=== PATIENT | male | born 1980 | race Caucasian/White ===

== ENCOUNTER 2022-03-01 12:15 | Emergency (ER) | payer BC, SELFPAY ==
--- NOTE | ~2022-03-01 | XR_ITS ---
EXAMINATION: XR chest 2V 03/01/2022 13:13 INDICATION: Chest pain and hypertension. PROCEDURE: 2 view chest COMPARISON: No prior studies for comparison. FINDINGS: The lungs are clear. The cardiomediastinal silhouette is within normal limits. There are no pleural effusions. There is no pneumothorax suspected. IMPRESSION: 1: NO ACUTE CARDIOPULMONARY DISEASE. Reviewed, dictated and finalized at location A.
--- NOTE | 2022-03-01 12:23 | ECG_ITS ---
Measurements Intervals [place] Rate: 87 P: 33 MS: 144 QRS: -16 QRSD: 91 T: 68 QT: 356 QTc: 430 Interpretive Statements SINUS RHYTHM WITH SINUS ARRHYTHMIA NONSPECIFIC T-WAVE ABNORMALITY NO PREVIOUS ECG AVAILABLE FOR COMPARISON Electronically Signed On 03-01-2022 18:07:20 CDT by Liliane Naidu M.D.
[2022-03-01 12:37] VITALS: BP 169/115; PULSE 103; RESP 20; TEMP 36.4; O2SAT 97
[2022-03-01 12:47] LABS: Basophils Absolute Auto 0.1 K/mm3 (0.0-0.1); Basophils Percent Auto 0.9 % (0.2-1.2); Eosinophils Absolute Auto 0.3 K/mm3 (0-0.3); Eosinophils Percent Auto 3.2 % (0-4.4); Hematocrit 46.7 % (42.0-52.0); Hemoglobin 15.7 g/dL (14.0-18.0); Immature Granulocyte Absolute 0.16 K/mm3 (0.00-0.031); Immature Granulocyte Percent A 1.8 % (0-0.5); Lymphocytes Absolute Auto 1.27 K/mm3 (0.9-3.2); Lymphocytes Percent Auto 14.6 % (18.3-44.2); Mean Corpuscular HGB Conc 33.6 g/dl (32-36); Mean Corpuscular Hemoglobin 31.1 pg (26-34); Mean Corpuscular Volume 92.5 fl (80-100); Mean Platelet Volume 8.9 fl (7.4-10.4); Monocytes Absolute Auto 0.6 K/mm3 (0.1-0.6); Monocytes Percent Auto 6.8 % (2.6-8.5); Neutrophils Absolute Auto 6.3 K/mm3 (1.3-6.7); Neutrophils Percent Auto 72.7 % (45.5-73.1); Platelet Count Result 242 k/mm3 (150-375); Red Blood Count 5.05 M/mm3 (4.6-6.20); Red Cell Distribution Width 12.4 % (11.5-14.5); White Blood Count 8.7 K/mm3 (4.5-10.0)
[2022-03-01 12:57] LABS: Alanine Aminotransferase 25 U/L (6-50); Albumin Level 4.6 g/dL (3.5-5.1); Alkaline Phosphatase 90 U/L (38-126); Anion Gap 7 mmol/L (8-16); Aspartate Amino Transferase 62 U/L (17-59); Bilirubin,Total 0.8 mg/dL (0.2-1.3); Blood Urea Nitrogen 19 mg/dL (9-20); Calcium 8.9 mg/dL (8.4-10.2); Carbon Dioxide 28 mmol/L (22-30); Chloride 102 mmol/L (98-107); Estimated CRCL calculation 87 ml/min; Estimated Glomerular Filt Rate > 60; Glucose 95 mg/dL (65-110); Lipase 71 U/L (23-300); Potassium 4.3 mmol/L (3.4-5.0); Sodium 137 mmol/L (137-145)
[2022-03-01 12:58] LABS: INR 0.9; Prothrombin Time 12.2 Seconds (11.1-14.7)
[2022-03-01 12:59] LABS: Partial Thromboplastin Time 27.7 SECONDS (22.3-36.8)
[2022-03-01 13:08] LABS: Troponin I < 0.012 ng/mL (0.000-0.034)
--- NOTE | 2022-03-01 14:03 | ED.GENADULT ---
HPI - General Adult General Chief complaint: Recheck/Abnormal Lab/Rx Stated complaint: HTN Time Seen by Provider: 03/01/22 13:19 Source: patient Mode of arrival: ambulatory History of Present Illness HPI narrative: This is a 42-year-old male with reported past medical history of hypertension, who presents to the emergency department complaining of general malaise, associated with blurred vision and elevated blood pressure by home monitoring. Patient states yesterday, he noted an unusual feeling, associated with blurred vision, without headache, loss of vision, weakness or chest pain/loss of consciousness. Patient states he checked his blood pressure, noted it was in the 200s over approximately 150s, which is why he presents today. He states he was previously taking metoprolol but stopped about 4 weeks ago due to paresthesias. He states he is currently not followed by a primary care doctor. Review of Systems Review of Systems: CONSTITUTIONAL: Denies fever, chills, or sweats. EYES: Blurred vision, Denies visual changes, redness, or discharge. ENT: Denies rhinorrhea, congestion, sore throat, or otalgia. CARDIOVASCULAR: Denies chest pain, palpitations, or edema. RESPIRATORY: Denies cough or dyspnea. GASTROINTESTINAL: Denies abdominal pain, nausea, vomiting, or diarrhea. GENITOURINARY: Denies dysuria or hematuria. SKIN: Denies rash or itching. MUSCULOSKELETAL: Denies back pain, joint pain, or myalgia. NEUROLOGIC: Denies headache, numbness, dizziness, or weakness. PSYCHIATRIC: Denies anxiety or depression. [facility] Tobacco Smoking and tobacco status: Former smoker Alcohol Alcohol intake: current Alcohol intake frequency: a few times a week (10 at a time) Alcohol type: other Previous attempts at quittin Counseling given: Yes Counseling provided: provider counseling Substance Use Substance use type: does not use Exam Narrative: GENERAL: Well-appearing, well-nourished, and in no acute distress. HEAD: Normocephalic, atraumatic. EYES: PERRLA and EOMI, funduscopic exam normal. ENT: Nares clear, no rhinorrhea or epistaxis. Mucous membranes moist. Oropharynx without tonsillar hypertrophy exudate or other lesions. NECK: Supple. No adenopathy or masses. No carotid bruits or JVD CHEST: Clear to auscultation. No respiratory distress. No wheezes rales or rhonchi HEART: Regular rate and rhythm. No murmur heard. Normal peripheral pulses. ABDOMEN: Obese, soft, nontender, nondistended, normal active bowel sounds. EXTREMITIES: Normal range of motion. No edema. SKIN: Warm, dry, no rash. NEURO: No focal deficits. Alert and oriented x3. Course Vital Signs Vital signs: Vital Signs Temperature 97.6 F 03/01/22 12:37 Pulse Rate 103 H 03/01/22 12:37 Respiratory Rate 20 03/01/22 12:37 Blood Pressure 169/115 H 03/01/22 12:37 Pulse Oximetry 97 03/01/22 12:37 Oxygen Delivery Room Air 03/01/22 12:37 Temperature 97.6 F 03/01/22 12:37 Pulse Rate 96 03/01/22 15:09 Respiratory Rate 19 03/01/22 15:09 Blood Pressure 170/116 H 03/01/22 15:09 Pulse Oximetry 96 03/01/22 15:09 Oxygen Delivery Room Air 03/01/22 12:37 Medical Decision Making [facility] Narrative Medical decision making narrative: Clinical diagnosis: Hypertension Exam unremarkable. Labs grossly within normal limits, including troponin. ECG not concerning for ischemia or arrhythmia. During evaluation, the patient revealed he drinks 3-4 times a week, 10 drinks at a time, with his last drink 2 days ago. He denied history of significant alcohol withdrawal or seizures. I do not suspect alcohol withdrawal at this time. Blood pressure is improved during observation without medical intervention. Recommended follow-up with primary care doctor for blood pressure management, as well as follow-up for alcohol abuse. Discussed return emergency precautions, including signs symptoms of cardiac or central nervous ischemia, and syncope. The patient voiced understanding and i
[2022-03-01 15:09] VITALS: BP 170/116; PULSE 96; RESP 19; O2SAT 96
== END 2022-03-01 15:09 | disposition home or self-care (01) ==
PROVIDERS: Emergency Medicine; Emergency Provider Preventive Medicine Aerospace Medicine
DX: I10 Essential (primary) hypertension (principal); F10.10 Alcohol abuse, uncomplicated; Z87.891 Personal history of nicotine dependence; R94.31 Abnormal electrocardiogram [ECG] [EKG]
CPT/HCPCS: 36415; 71046; 80053; 83690; 84484; 85025; 85610; 85730; 93005; 99284

== ENCOUNTER 2022-05-03 10:40 | Outpatient (CLI) | payer BC, SELFPAY ==
--- NOTE | ~2022-05-03 | XR_ITS ---
EXAMINATION: XR chest 2V DATE: 05/03/2022 11:04 INDICATION: COVID 19 TECHNIQUE: PA and lateral views of the chest were obtained. COMPARISON: Chest radiograph dated 03/01/2022 FINDINGS: The lungs are clear with no focal airspace opacities, pulmonary edema, pleural effusion or pneumothor ax. The cardiomediastinal silhouette is normal. Visualized bones and soft tissues are unremarkable. IMPRESSION: 1. No acute cardiopulmonary disease. Reviewed, dictated and finalized at location A.
== END 2022-05-03 10:41 | disposition home or self-care (01) ==
PROVIDERS: PCP Family Medicine; Visit Provider Physician Assistant
DX: U07.1 COVID-19 (principal); R05.9 Cough, unspecified
CPT/HCPCS: 71046

== ENCOUNTER 2022-08-24 10:05 | Outpatient (CLI) | payer BC, SELFPAY ==
[2022-08-24 11:04] LABS: Influenza A QL RT-PCR Negative (Negative); Influenza B QL RT-PCR Negative (Negative); SARS-CoV-2 RNA PCR Negative
== END 2022-08-24 10:06 | disposition home or self-care (01) ==
LOC: ANHLAB 10:07
PROVIDERS: PCP Family Medicine; Visit Provider Physician Assistant
DX: R68.89 Other general symptoms and signs (principal); Z20.822 Contact with and (suspected) exposure to COVID-19
CPT/HCPCS: 87636

== ENCOUNTER 2022-09-07 16:26 | Emergency (ER) | payer BC, SELFPAY ==
--- NOTE | 2022-09-07 16:32 | ED.URI ---
HPI - URI/Sore Throat General Chief Complaint: Upper Respiratory Infection Stated Complaint: flu Time Seen by Provider: 09/07/22 16:29 Source: patient Mode of arrival: ambulatory Limitations: no limitations History of Present Illness HPI Narrative: Domingo is a 42-year-old male patient presenting to the clinic today with complaints of possible flu. He reports he is having nausea, vomiting, diarrhea, body aches, chills, sore throat, cough, and nasal congestion x2 days. He denies any known exposure to anyone with COVID, flu, strep MD elicited complaint: sore throat and nasal congestion Related Data Home Medications Medication Instructions Recorded Confirmed escitalopram oxalate 5 mg tablet 5 mg PO DAILY 04/11/22 09/07/22 (Lexapro) Allergies Allergy/AdvReac Type Severity Reaction Status Date / Time No Known Allergies Allergy Verified 09/07/22 16:43 Review of Systems Review of Systems: Pertinent positives per HPI. Patient denies any fever, chills, rash, headache, visual changes, dizziness, cough, shortness of breath, chest pain, palpitations, nausea, vomiting, diarrhea, constipation, abdominal pain, or any urinary issues. [facility] Past Medical History Medical History Alcohol abuse Anxiety HTN (hypertension) Surgical History Surgical History History of tonsillectomy and adenoidectomy Family History Family History Father Diabetes mellitus Hypertension Sibling Hypertension Social History Social History Smoking status: Former smoker Second hand tobacco smoke exposure: No Alcohol intake: current Substance use: never Substance use type: does not use Gender identity (if verbalized by the patient): Male Sexual Orientation (if Verbalized by the Patient): Straight or Heterosexual Comments At the time of my signature, I reviewed and agree with the nursing past medical, surgical, social, and family history. There is no relevant family history pertinent to the patient complaint. Exam Narrative: General: Well-developed, morbidly obese, in no apparent distress Head: Normocephalic, atraumatic Eyes: Pupils equally round and reactive to light bilaterally, EOM intact, sclera and conjunctive clear, no discharge, lids normal Ears: TMs intact and clear, ear canals clear, no drainage, grossly hearing normal. Nose: Nares patent, no discharge, no inflammation, no sinus tenderness. Mouth: Oral pharynx without lesions or masses, good dentition, MMM. Neck: Supple, trachea midline, no enlargement of anterior or posterior cervical nodes, no thyroid masses or goiter palpable. Cardio: Regular rate and rhythm, s1 and s2 normal, no murmur appreciated. Resp: Clear to auscultation bilaterally, no rhonchi, rales, wheezing or rubs Course Course Emergency Course: Portions of this record may have been created with voice recognition software. Level of Care: Express Care Visit Vital Signs Vital signs: Vital Signs Temperature 37.0 C 09/07/22 16:35 Pulse Rate 89 09/07/22 16:35 Respiratory Rate 20 09/07/22 16:35 Blood Pressure 175/107 H 09/07/22 16:35 Pulse Oximetry 98 09/07/22 16:35 Oxygen Delivery Room Air 09/07/22 16:35 Temperature 37.0 C 09/07/22 16:43 Pulse Rate 89 09/07/22 16:43 Respiratory Rate 20 09/07/22 16:43 Blood Pressure 175/127 H 09/07/22 16:43 Pulse Oximetry 98 09/07/22 16:43 Oxygen Delivery Room Air 09/07/22 16:43 Vital signs reviewed MDM - URI/Sore Throat MDM Narrative Medical decision making narrative: At the time of the patient is resting comfortably on the exam table. COVID, flu, and strep testing were performed in the clinic today. Differential Diagnosis Differential diagnosis: Likely upper respir
[2022-09-07 16:35] VITALS: BP 175/107; PULSE 89; RESP 20; TEMP 37; O2SAT 98
[2022-09-07 16:43] VITALS: BP 175/127; PULSE 89; RESP 20; TEMP 37; O2SAT 98
[2022-09-07 17:05] VITALS: BP 170/100
== END 2022-09-07 17:05 | disposition home or self-care (01) ==
PROVIDERS: Emergency Provider Nurse Practitioner Family
DX: K52.9 Noninfective gastroenteritis and colitis, unspecified (principal); I10 Essential (primary) hypertension; J06.9 Acute upper respiratory infection, unspecified; J02.9 Acute pharyngitis, unspecified; B34.9 Viral infection, unspecified; Z20.822 Contact with and (suspected) exposure to COVID-19; Z87.891 Personal history of nicotine dependence; F41.9 Anxiety disorder, unspecified
CPT/HCPCS: 87081; 87426; 87804; 87880; 99213; C9803; G0463